=== PATIENT | male | born 2000 | race Caucasian/White ===

== ENCOUNTER 2020-10-02 19:28 | Emergency (ER) | payer MEDICAID, OTHER ==
[~2020-10-02] VITALS: Ht 177.8 cm; Wt 128.4 kg
[2020-10-02 19:39] VITALS: BP 150/99
--- NOTE | 2020-10-02 19:39 | NUR ---
TO BED AMBULATORY
--- NOTE | 2020-10-02 19:50 | NUR ---
20 y/o male presented to ED c/o LLQ abdominal "weirdness" x 1 day after pt picked up gino. Pt denies feeling any pop and denies any pain. Pt states it just feels a little weird. Pt c/o x 1 episode of diarrhea but denies any blood in stool. Pt denies fever, body aches, chills, chest pain, nausea and vomitting. Normoactive bowel sounds noted. Abd round, soft and nontender upon palpation. Pt resting in bed, locked and in lowest position, HOB elevated, side rail x 1. VSS. No acute distress noted. pmh: denies NKA
[2020-10-02] MEDS ORDERED: ACET-8211 PO (20:09)
[2020-10-02] MEDS ORDERED: IBUP-2213 PO (20:09)
[2020-10-02] MEDS ORDERED: IBUPROFEN 600 MG TAB PO ONE (20:10)
[2020-10-02] MEDS ORDERED: ACETAMINOPHEN 325 MG TAB PO ONE (20:10)
[2020-10-02 20:27] VITALS: BP 150/99
--- NOTE | 2020-10-02 20:27 | NUR ---
Patient discharged with v/s stable. Written and verbal after care instructions given and explained. Patient alert, oriented and verbalized understanding of instructions. Ambulatory with steady gait. All questions addressed prior to discharge. ID band removed. Patient advised to follow up with PMD. Rx of ibuprofen & tylenol given.Pharmacy confirmed with patient. Patient educated on indication of medication including possible reaction and side effects. Opportunity to ask questions provided and answered.
== END 2020-10-02 20:27 | disposition home or self-care (01) ==
LOC: MED 19:28
DX: S29.011A Strain of muscle and tendon of front wall of thorax, initial encounter (principal); X50.0XXA Overexertion from strenuous movement or load, initial encounter; Y93.89 Activity, other specified; Y92.89 Other specified places as the place of occurrence of the external cause; Y99.8 Other external cause status
CPT/HCPCS: 99283